=== PATIENT | female | born 1980 | race Caucasian/White ===

== ENCOUNTER → 2020-11-20 | Outpatient (CLI) | payer OTHER ==
[~2020-11-20] MED LIST: ADDE12.5 PO; CELE40TA PO; INDE160C5 PO; LISI-898 PO
== END ==
LOC: M ONCR 13:20
PROVIDERS: ATTEND Radiology Radiation Oncology
DX: C50.211 Malignant neoplasm of upper-inner quadrant of right female breast (principal)

== ENCOUNTER → 2021-01-06 | Outpatient (RCR) | payer OTHER ==
[~2021-01-06] MED LIST changes: +KLON1TAB PO; +LIDO1CRE42 TOP; +NAPR220C23 PO; +PROC10TA4 PO
== END ==
LOC: M ONCR 12-14 09:01
PROVIDERS: ATTEND General Practice
DX: C50.211 Malignant neoplasm of upper-inner quadrant of right female breast (principal)

== ENCOUNTER → 2021-01-26 | Outpatient (CLI) | payer OTHER ==
[~2021-01-26] MED LIST changes: +ONDA8TAB10 PO; +OXYC10TA3 PO; +SILV40CR EXT; +TAMO20TA8 PO
== END ==
LOC: M LAB 16:08
PROVIDERS: ATTEND Specialist
DX: D05.11 Intraductal carcinoma in situ of right breast (principal)

== ENCOUNTER → 2021-01-29 | Outpatient (CLI) | payer OTHER ==
[~2021-01-29] MED LIST changes: +CEPH500C PO; +FLUC10TA PO
--- NOTE | 2021-01-29 15:51 | REP ---
INDICATION: DIAG LT BREAST MAMMO,C50.911 HX RT BREAST CA; FOLLOW UP MAMMO. COMPARISON: No comparison left breast imaging. TECHNIQUE: Craniocaudal and mediolateral views are obtained. Implant included an implant displaced techniques were utilized. Magnified focal spot-compression images of the left breast were obtained at my direction because of a mammographic finding. Targeted left breast sonography is performed. This mammogram was interpreted with the aid of an FDA-approved computer-aided detection system. FINDINGS: The visualized left breast implant margins are smooth. Scattered fibroglandular elements are noted. There is a 5 mm nodular density in the upper-outer quadrant of the left breast visible mammographically. This contains a notch and is felt to be compatible with a small intramammary lymph node. No other significant mammographic finding. . Targeted ultrasound: Targeted left breast sonography is performed 2 o'clock to 3 o'clock position. At 2 o'clock there is a 6 x 3 x 4 mm hypoechoic area containing and echogenic hilar architecture consistent with a intramammary lymph node. This is felt to correspond with the mammographic opacity. No sonographically suspicious finding. IMPRESSION: BIRADS/ACR category 2 benign left breast mammographic and sonographic findings. 6 mm intramammary lymph node noted. RECOMMENDATION: Repeat screening mammography recommended 1 year (for women over 40). The patient letter being requested is M1. <Electronically signed by Michael Giraldo > 01/29/21 [id number]
== END ==
LOC: M WHC 13:07
PROVIDERS: ATTEND Surgery
DX: R92.8 Other abnormal and inconclusive findings on diagnostic imaging of breast (principal); Z85.3 Personal history of malignant neoplasm of breast; R59.0 Localized enlarged lymph nodes; Z98.82 Breast implant status
CPT/HCPCS: 76642; 77065; G0279

== ENCOUNTER 2021-02-04 15:31 | Outpatient (RCR) | payer OTHER | END 2021-02-06 | LOC: M ONCR 15:31 | PROVIDERS: ATTEND General Practice | DX: C50.211 Malignant neoplasm of upper-inner quadrant of right female breast (principal) ==

== ENCOUNTER → 2021-03-19 | Outpatient (REF) | payer OTHER ==
[2021-03-19 17:34] LABS: BARBITURATES URINE REFLEX NEGATIVE (NEGATIVE); BENZODIAZEPINES URINE REFLEX NEGATIVE (NEGATIVE); CANNABINOIDS URINE REFLEX NEGATIVE (NEGATIVE); COCAINE METABOLITE URINE REFLE NEGATIVE (NEGATIVE); METHADONE URINE REFLEX NEGATIVE (NEGATIVE); OPIATES URINE REFLEX NEGATIVE (NEGATIVE); PHENCYCLIDINE URINE REFLEX NEGATIVE (NEGATIVE)
[2021-03-19 18:14] LABS: AMPHETAMINES URINE REFLEX PENDING CONFIRMATION (NEGATIVE)
== END ==
LOC: M SFHCLERA 15:51
PROVIDERS: ATTEND Nurse Practitioner Family
DX: F90.2 Attention-deficit hyperactivity disorder, combined type (principal)
CPT/HCPCS: 80307; G0480

== ENCOUNTER → 2021-09-13 | Outpatient (CLI) | payer OTHER ==
[~2021-09-13] MED LIST changes: -LISI-898 PO; +LISI5TAB11 PO; +ONDA-84 PO; -ONDA8TAB10 PO; +PREG50CA PO; -PROC10TA4 PO; +PROC10TA5 PO
== END ==
LOC: M WHC 09:37 → EDUNIT# 10:00
PROVIDERS: ATTEND Surgery
DX: C50.911 Malignant neoplasm of unspecified site of right female breast (principal); Z98.82 Breast implant status; N60.01 Solitary cyst of right breast; N60.02 Solitary cyst of left breast; L72.0 Epidermal cyst
CPT/HCPCS: 76641; 77066; G0279

== ENCOUNTER → 2024-10-25 | Outpatient (CLI) | payer OTHER ==
[~2024-10-25] MED LIST changes: -KLON1TAB PO; +KLON1TAB13 PO; -LIDO1CRE42 TOP; +LIDO30CR18 TOP; +TAMO10TA8 PO
[2024-10-25 17:16] LABS: BASO # 0.1 10^3/uL (0.0-0.2); EOS # 0.2 10^3/uL (0.0-0.5); EOS % 3.3 % (0.0-3.0); HEMATOCRIT 41.1 % (36.0-47.0); HEMOGLOBIN 13.8 g/dl (12.0-15.5); LYMPH # 2.7 10^3/uL (1.5-5.0); LYMPH % 38.7 % (24.0-44.0); MEAN CORPUSCULAR HEMOGLOBIN 32.9 pg (27.0-33.0); MEAN CORPUSCULAR HGB CONC 33.6 g/dl (32.0-36.5); MEAN CORPUSCULAR VOLUME 98.1 fl (80.0-96.0); MONO # 0.6 10^3/uL (0.0-0.8); MONO % 8.6 % (2.0-8.0); NEUTROPHILS # 3.4 10^3/uL (1.5-8.5); NEUTROPHILS % 48.1 % (36.0-66.0); PLATELET COUNT, AUTOMATED 299 10^3/uL (150-450); RED BLOOD COUNT 4.19 10^6/uL (4.00-5.40)
[2024-10-25 17:23] LABS: ALBUMIN 3.6 G/DL (3.2-5.2); ALKALINE PHOSPHATASE 82 U/L (35-104); ALT/SGPT 57 U/L (7.0-40); AST/SGOT 33 U/L (<34); BILIRUBIN,TOTAL 0.7 MG/DL (0.3-1.2); BLOOD UREA NITROGEN 12 MG/DL (9-23); CARBON DIOXIDE LEVEL 26 MMOL/L (20-31); CHLORIDE LEVEL 106 MMOL/L (98-107); CREATININE FOR GFR 0.61 MG/DL (0.55-1.30); GLOMERULAR FILTRATION RATE > 90.0 (>58); GLUCOSE, FASTING 67 MG/DL (60-100); POTASSIUM SERUM 4.2 MMOL/L (3.5-5.1); SODIUM LEVEL 139 MMOL/L (136-145); TOTAL PROTEIN 7.1 G/DL (5.7-8.2)
[2024-10-25 17:25] LABS: THYROID STIMULATING HORMONE 2.662 uIU/ML (0.55-4.78)
== END ==
LOC: M PLALAB 14:54
PROVIDERS: ATTEND Family Medicine
DX: Z00.00 Encounter for general adult medical examination without abnormal findings (principal); E03.9 Hypothyroidism, unspecified

== ENCOUNTER → 2024-11-20 | Outpatient (CLI) | payer OTHER ==
[~2024-11-20] MED LIST changes: -PREG50CA PO; +PREG50CA87 PO
== END ==
LOC: M WHC 15:11
PROVIDERS: ATTEND Family Medicine
DX: Z12.31 Encounter for screening mammogram for malignant neoplasm of breast (principal)

== ENCOUNTER → 2025-01-01 | Outpatient (CLI) | payer OTHER ==
[~2025-01-01] MED LIST changes: +LETR2.5T2 PO
== END ==
LOC: M ONCM 13:48
DX: C50.919 Malignant neoplasm of unspecified site of unspecified female breast (principal)

== ENCOUNTER → 2025-01-27 | Outpatient (CLI) | payer OTHER ==
[~2025-01-27] VITALS: Ht 162.6 cm; Wt 88.5 kg
[2025-01-27 08:48] VITALS: BP 149/79; O2SAT 100
== END ==
LOC: M PAL 08:32
PROVIDERS: ATTEND Physician Assistant
DX: Z51.5 Encounter for palliative care (principal); C50.911 Malignant neoplasm of unspecified site of right female breast; R52 Pain, unspecified; F32.A Depression, unspecified; F41.9 Anxiety disorder, unspecified; Z79.810 Long term (current) use of selective estrogen receptor modulators (SERMs); Z79.891 Long term (current) use of opiate analgesic; Z79.899 Other long term (current) drug therapy; Z88.8 Allergy status to other drugs, medicaments and biological substances; Z92.3 Personal history of irradiation; Z98.890 Other specified postprocedural states

== ENCOUNTER → 2025-04-07 | Outpatient (CLI) | payer OTHER ==
[~2025-04-07] MED LIST changes: +ADDE20CA3 PO; +ADDE30TA PO; +OXYC10TA12 PO
== END ==
LOC: M PAL 08:21
PROVIDERS: ATTEND Physician Assistant
DX: Z51.5 Encounter for palliative care (principal); C50.911 Malignant neoplasm of unspecified site of right female breast; Z98.890 Other specified postprocedural states; Z92.3 Personal history of irradiation; Z79.810 Long term (current) use of selective estrogen receptor modulators (SERMs); Z79.891 Long term (current) use of opiate analgesic; Z88.1 Allergy status to other antibiotic agents; Z79.899 Other long term (current) drug therapy

== ENCOUNTER → 2025-05-29 | Outpatient (REF) | payer OTHER ==
[2025-05-31 14:23] LABS: HPV APTIMA Not Detected (Not Detected)
== END ==
LOC: M SFHCWAGY 15:02
PROVIDERS: ATTEND Nurse Practitioner Family
DX: Z12.4 Encounter for screening for malignant neoplasm of cervix (principal)

== ENCOUNTER → 2025-07-01 | Outpatient (REF) | payer OTHER | LOC: M SFHCLERA 17:09 | PROVIDERS: ATTEND Student in an Organized Health Care Education/Training Program | DX: R09.89 Other specified symptoms and signs involving the circulatory and respiratory systems (principal) ==